=== PATIENT | male | born 1985 | race Caucasian/White ===

== ENCOUNTER 2021-04-15 13:26 | Inpatient (IN) | payer OTHER, SELFPAY ==
[~2021-04-15] VITALS: Ht 175.3 cm; Wt 84.8 kg
[2021-04-15 13:32] VITALS: BP_SYST 134
[2021-04-15] MEDS ORDERED: NACL 0.9% 1,000 ML IV ONE (13:45)
[2021-04-15] MEDS ORDERED: LORazepam 2 MG/ML VIAL IVP ONE ×2 (13:45→18:00)
[2021-04-15 14:25] LABS: CALCIUM 8.3 mg/dL (8.4-11.0); CREATININE 0.88 mg/dL (0.55-1.30); POTASSIUM 3.3 mmol/L (3.5-5.1)
[2021-04-15 14:30] LABS: BASOPHILS # (AUTO) 0.2 K/uL (0.0-0.2); BASOPHILS % (AUTO) 3.2 % (0.0-2.0); EOSINOPHILS # (AUTO) 0.1 K/uL (0.0-0.4); EOSINOPHILS % (AUTO) 1.5 % (0.0-4.0); HEMOGLOBIN 14.1 g/dL (14.0-18.0); LYMPHOCYTES # (AUTO) 0.6 K/uL (1.0-5.5); LYMPHOCYTES % (AUTO) 12.7 % (20.5-51.5); MEAN CORPUSCULAR HEMOGLOBIN 33 pg (27-31); MEAN CORPUSCULAR HGB CONC 34 % (32-36); MEAN CORPUSCULAR VOLUME 97 fL (79.0-98.0); MONOCYTES # (AUTO) 0.3 K/uL (0.0-1.0); MONOCYTES % (AUTO) 5.1 % (1.7-9.3); NEUTROPHILS # (AUTO) 3.9 K/uL (1.8-7.7); NEUTROPHILS % (AUTO) 77.5 % (40.0-70.0); PLATELET COUNT (AUTO) 188 K/uL (130-430); RED BLOOD CELL COUNT(AUTO) 4.25 MIL/uL (4.2-6.2); RED CELL DISTRIBUTION WIDTH 14.4 % (9.0-15.0)
[2021-04-15 14:31] LABS: TOTAL BILIRUBIN 1.7 mg/dL (0.0-1.0)
[2021-04-15] MEDS ORDERED: KETOROLAC TROMETHAMINE 30 MG VIAL IVP ONE (18:15)
[2021-04-15] MEDS ORDERED: MAGNESIUM SULFATE 1 GM/2 ML VIAL ONE (18:48)
[2021-04-15] MEDS ORDERED: MVI 10 ML VIAL IV ONE (18:48)
[2021-04-15] MEDS ORDERED: THIAMINE HCL 100 MG/ML VIAL ONE (18:48)
[2021-04-15] MEDS ORDERED: FOLIC ACID 5 MG/ML VIAL IV ONE (18:48)
[2021-04-15] MEDS: FOLIC ACID 1 MG, THIAMINE HCL 100 MG, MAGNESIUM SULFATE 1 GM, MVI 10 ML in NACL 0.9% 1,... IV SCH (19:18)
[2021-04-15] MEDS ORDERED: POTASSIUM CHLORIDE 20 MEQ TAB.PRT.SR PO ONE (21:30)
[2021-04-15] MEDS ORDERED: chlordiazePOXIDE HCL 25 MG CAPSULE ONE (21:42)
[2021-04-15] MEDS: chlordiazePOXIDE HCL 10 MG CAPSULE PO SCH (21:53)
[2021-04-15 22:48] LABS: BARBITURATE, URINE NEGATIVE (NEG <=200); BENZODIAZEPINE, URINE POSITIVE (NEG <=150); CANNABINOID, URINE POSITIVE (NEG <=50); COCAINE, URINE NEGATIVE (NEG <=150); METHAMPHETAMINES SCREEN,URINE NEGATIVE (NEG <=500); OPIATE, URINE NEGATIVE (NEG <=100); PHENCYCLIDINE SCREEN,URINE NEGATIVE (NEG <=25); UR TRICYCLIC ANTIDEPRESSANTS NEGATIVE (NEG <=300); URINE AMPHETAMINE NEGATIVE (NEG <=500); URINE METHADONE NEGATIVE (NEG <=200); URINE OXYCODONE SCREEN NEGATIVE (NEG <=100); URINE PROPOXYPHENE SCREEN NEGATIVE (NEG <=300)
[2021-04-16] MEDS ORDERED: THIAMINE HCL 100 MG/ML VIAL ONE (02:41)
[2021-04-16] MEDS ORDERED: MAGNESIUM SULFATE 1 GM/2 ML VIAL ONE (02:41)
[2021-04-16] MEDS ORDERED: MVI 10 ML VIAL IV ONE (02:41)
[2021-04-16] MEDS: LORazepam 2 MG/ML VIAL IVP PRN ×4 (02:45→16:38)
[2021-04-16] MEDS: FOLIC ACID 1 MG, THIAMINE HCL 100 MG, MAGNESIUM SULFATE 1 GM, MVI 10 ML in NACL 0.9% 1,... IV SCH (02:53)
[2021-04-16 05:28] LABS: ALBUMIN 3.7 g/dL (3.4-4.8); CREATININE 0.79 mg/dL (0.55-1.30); TOTAL BILIRUBIN 2.1 mg/dL (0.0-1.0)
[2021-04-16 05:48] LABS: CALCIUM 8.6 mg/dL (8.4-11.0)
[2021-04-16 05:50] LABS: BASOPHILS % (AUTO) 0.8 % (0.0-2.0); EOSINOPHILS % (AUTO) 0.8 % (0.0-4.0); HEMATOCRIT 36.3 % (36-54); HEMOGLOBIN 12.3 g/dL (14.0-18.0); LYMPHOCYTES % (AUTO) 25.6 % (20.5-51.5); MEAN CORPUSCULAR HEMOGLOBIN 33 pg (27-31); MEAN CORPUSCULAR HGB CONC 34 % (32-36); MEAN CORPUSCULAR VOLUME 97 fL (79.0-98.0); MONOCYTES # (AUTO) 0.3 K/uL (0.0-1.0); MONOCYTES % (AUTO) 8.5 % (1.7-9.3); NEUTROPHILS # (AUTO) 2.4 K/uL (1.8-7.7); NEUTROPHILS % (AUTO) 64.3 % (40.0-70.0); PLATELET COUNT (AUTO) 145 K/uL (130-430); RED BLOOD CELL COUNT(AUTO) 3.74 MIL/uL (4.2-6.2); RED CELL DISTRIBUTION WIDTH 14.3 % (9.0-15.0); WHITE BLOOD COUNT (AUTO) 3.7 K/uL (4.8-10.8)
[2021-04-16] MEDS ORDERED: FOLIC ACID 1 MG TABLET PO SCH (09:00)
[2021-04-16] MEDS: chlordiazePOXIDE HCL 10 MG CAPSULE PO SCH ×2 (09:00→13:00)
[2021-04-16] MEDS ORDERED: MULTIVITAMINS TAB 1 TABLET PO SCH (09:00)
[2021-04-16] MEDS ORDERED: THIAMINE HCL 100 MG TABLET PO SCH (09:00)
[2021-04-16] MEDS ORDERED: chlordiazePOXIDE HCL 25 MG CAPSULE ONE ×3 (12:18→17:48)
[2021-04-16 15:00] VITALS: BP_SYST 121
== END 2021-04-16 17:56 | disposition left against medical advice (07) | DRG 605 ==
LOC: SED 13:26 → STU 18:40
PROVIDERS: ADMIT Internal Medicine; ATTEND Internal Medicine
DX: S60.221A Contusion of right hand, initial encounter (principal); F10.239 Alcohol dependence with withdrawal, unspecified; Z53.29 Procedure and treatment not carried out because of patient's decision for other reasons; E87.6 Hypokalemia; Y90.6 Blood alcohol level of 120-199 mg/100 ml; F41.9 Anxiety disorder, unspecified; K70.10 Alcoholic hepatitis without ascites; X58.XXXA Exposure to other specified factors, initial encounter; Z20.822 Contact with and (suspected) exposure to COVID-19; Y93.89 Activity, other specified; Y92.89 Other specified places as the place of occurrence of the external cause; Y99.8 Other external cause status
CPT/HCPCS: 36415; 80053; 80307; 85025; 93005; 96361; 96374; 96375; 96376; 99291; G0378; G0482; J1885; J2060; J3411; J3475; J3490

== ENCOUNTER 2021-08-14 09:00 | Inpatient (IN) | payer OTHER ==
[~2021-08-14] VITALS: Ht 177.8 cm; Wt 81.6 kg
[2021-08-14 09:05] VITALS: BP_SYST 121
[2021-08-14] MEDS ORDERED: NACL 0.9% 2,000 ML IV ONE (09:30)
[2021-08-14] MEDS ORDERED: ONDANSETRON HCL 4 MG/2 ML VIAL IVP ONE (09:30)
[2021-08-14] MEDS ORDERED: LORazepam 2 MG/ML VIAL IVP ONE (09:30)
[2021-08-14 10:27] LABS: BASOPHILS % (AUTO) 0.3 % (0.0-2.0); HEMATOCRIT 43.1 % (36-54); HEMOGLOBIN 14.6 g/dL (14.0-18.0); LYMPHOCYTES # (AUTO) 1.6 K/uL (1.0-5.5); LYMPHOCYTES % (AUTO) 14.1 % (20.5-51.5); MEAN CORPUSCULAR HEMOGLOBIN 31 pg (27-31); MEAN CORPUSCULAR HGB CONC 34 % (32-36); MEAN CORPUSCULAR VOLUME 92 fL (79.0-98.0); MONOCYTES # (AUTO) 0.7 K/uL (0.0-1.0); MONOCYTES % (AUTO) 6.1 % (1.7-9.3); NEUTROPHILS # (AUTO) 9.1 K/uL (1.8-7.7); NEUTROPHILS % (AUTO) 79.5 % (40.0-70.0); PLATELET COUNT (AUTO) 308 K/uL (130-430); RED BLOOD CELL COUNT(AUTO) 4.67 MIL/uL (4.2-6.2); RED CELL DISTRIBUTION WIDTH 13.1 % (9.0-15.0); WHITE BLOOD COUNT (AUTO) 11.4 K/uL (4.8-10.8)
[2021-08-14 10:35] LABS: ANION GAP 26 (5-15); CALCIUM 8.9 mg/dL (8.4-11.0); CHLORIDE 96 mmol/L (98-107); CREATININE 1.12 mg/dL (0.55-1.30); GLUCOSE 127 mg/dL (70-99); POTASSIUM 3.5 mmol/L (3.5-5.1); SODIUM SERUM 137 mmol/L (136-145); UREA NITROGEN, BLOOD 9 mg/dL (8-21)
[2021-08-14 10:41] LABS: ALANINE AMINOTRANSFERASE 58 U/L (12-78); ALBUMIN 4.6 g/dL (3.4-4.8); AMYLASE 118 U/L (0-100); ASPARTATE AMINOTRANSFERASE 61 U/L (10-37); LIPASE 105 U/L (73-393); TOTAL BILIRUBIN 1.6 mg/dL (0.0-1.0)
[2021-08-14 10:51] LABS: GFR AFRICAN AMERICAN 97 mL/min (>90)
[2021-08-14 11:18] LABS: ACETONE, SERUM TRACE (NEGATIVE)
[2021-08-14 11:20] LABS: ALCOHOL, BLOOD 40 mg/dL (<10)
[2021-08-14] MEDS ORDERED: ESCI10TA PO (11:56)
[2021-08-14] MEDS ORDERED: FOLIC ACID 1 MG, THIAMINE HCL 100 MG, MAGNESIUM SULFATE 1 GM, MVI 10 ML in NACL 0.9% 1,... IV SCH (12:45)
[2021-08-14] MEDS ORDERED: MORPHINE 2 MG/ML INJ. SYRINGE IVP PRN ×2 (12:45)
[2021-08-14] MEDS ORDERED: MUPIROCIN 2% TOPICAL OINTMENT 22 GM NS PRN (12:45)
[2021-08-14] MEDS ORDERED: POTASSIUM CHLORIDE 20 MEQ TAB.PRT.SR PO PRN (12:45)
[2021-08-14] MEDS ORDERED: ACETAMINOPHEN 325 MG TABLET PO PRN (12:45)
[2021-08-14] MEDS ORDERED: MAGNESIUM SULFATE 50 ML IV PRN (12:45)
[2021-08-14] MEDS ORDERED: ZOLPIDEM TARTRATE 5 MG TABLET PO PRN (12:45)
[2021-08-14] MEDS ORDERED: DOCUSATE SODIUM 100 MG CAPSULE PO PRN (12:45)
[2021-08-14] MEDS ORDERED: NALOXONE HCL 0.4 MG/ML AMP (NARCAN) IVP PRN ×2 (12:45)
[2021-08-14] MEDS ORDERED: THIAMINE HCL 100 MG, MAGNESIUM SULFATE 1 GM in NS 100 ML IV SCH (13:15)
[2021-08-14] MEDS ORDERED: FOLIC ACID 1 MG, MVI 10 ML in NACL 0.9% 1,000 ML IV SCH (13:15)
[2021-08-14] MEDS: NACL 0.9% 1,000 ML IV SCH (13:40)
[2021-08-14] MEDS: ONDANSETRON HCL 4 MG/2 ML VIAL IVP PRN ×2 (14:43→20:33)
[2021-08-14] MEDS: LORazepam 2 MG/ML VIAL IVP PRN ×2 (14:44→20:27)
[2021-08-14] MEDS: chlordiazePOXIDE HCL 25 MG CAPSULE PO SCH ×2 (14:57→20:25)
[2021-08-14 17:07] VITALS: BP_SYST 119
[2021-08-14 20:00] VITALS: BP_SYST 132
[2021-08-15 00:14] VITALS: BP_SYST 127
[2021-08-15] MEDS: NACL 0.9% 1,000 ML IV SCH ×4 (02:48→23:24)
[2021-08-15 05:55] LABS: BASOPHILS % (AUTO) 0.7 % (0.0-2.0); EOSINOPHILS # (AUTO) 0.1 K/uL (0.0-0.4); EOSINOPHILS % (AUTO) 2.3 % (0.0-4.0); HEMATOCRIT 37.8 % (36-54); HEMOGLOBIN 12.8 g/dL (14.0-18.0); LYMPHOCYTES # (AUTO) 1.4 K/uL (1.0-5.5); MEAN CORPUSCULAR HEMOGLOBIN 32 pg (27-31); MEAN CORPUSCULAR HGB CONC 34 % (32-36); MEAN CORPUSCULAR VOLUME 93 fL (79.0-98.0); MONOCYTES # (AUTO) 0.3 K/uL (0.0-1.0); MONOCYTES % (AUTO) 7.3 % (1.7-9.3); NEUTROPHILS # (AUTO) 2.8 K/uL (1.8-7.7); NEUTROPHILS % (AUTO) 59.7 % (40.0-70.0); PLATELET COUNT (AUTO) 187 K/uL (130-430); RED BLOOD CELL COUNT(AUTO) 4.06 MIL/uL (4.2-6.2); RED CELL DISTRIBUTION WIDTH 13.5 % (9.0-15.0); WHITE BLOOD COUNT (AUTO) 4.6 K/uL (4.8-10.8)
[2021-08-15 06:22] LABS: CALCIUM 8.1 mg/dL (8.4-11.0); CREATININE 0.67 mg/dL (0.55-1.30); POTASSIUM 3.3 mmol/L (3.5-5.1)
[2021-08-15 08:29] VITALS: BP_SYST 150
[2021-08-15] MEDS ORDERED: ESCITALOPRAM OXALATE 10 MG TABLET PO SCH (09:00)
[2021-08-15] MEDS: ONDANSETRON HCL 4 MG/2 ML VIAL IVP PRN ×2 (09:28→23:09)
[2021-08-15] MEDS: chlordiazePOXIDE HCL 25 MG CAPSULE PO SCH ×3 (09:28→21:43)
[2021-08-15] MEDS: THIAMINE HCL 100 MG TABLET PO SCH (09:28)
[2021-08-15] MEDS: CITALOPRAM HYDROBROMIDE 20 MG TABLET PO SCH (09:28)
[2021-08-15] MEDS: LORazepam 2 MG/ML VIAL IVP PRN ×3 (09:30→23:10)
[2021-08-15 11:26] VITALS: BP_SYST 127
[2021-08-15 17:15] VITALS: BP_SYST 124
[2021-08-15 20:30] VITALS: BP_SYST 138
[2021-08-16 00:23] VITALS: BP_SYST 120
[2021-08-16 05:57] LABS: BASOPHILS % (AUTO) 0.7 % (0.0-2.0); EOSINOPHILS # (AUTO) 0.3 K/uL (0.0-0.4); EOSINOPHILS % (AUTO) 6.9 % (0.0-4.0); HEMATOCRIT 38.2 % (36-54); HEMOGLOBIN 12.9 g/dL (14.0-18.0); LYMPHOCYTES # (AUTO) 1.6 K/uL (1.0-5.5); LYMPHOCYTES % (AUTO) 32.3 % (20.5-51.5); MEAN CORPUSCULAR HEMOGLOBIN 32 pg (27-31); MEAN CORPUSCULAR HGB CONC 34 % (32-36); MEAN CORPUSCULAR VOLUME 93 fL (79.0-98.0); MONOCYTES # (AUTO) 0.3 K/uL (0.0-1.0); MONOCYTES % (AUTO) 6.7 % (1.7-9.3); NEUTROPHILS # (AUTO) 2.7 K/uL (1.8-7.7); NEUTROPHILS % (AUTO) 53.4 % (40.0-70.0); PLATELET COUNT (AUTO) 188 K/uL (130-430); RED CELL DISTRIBUTION WIDTH 13.2 % (9.0-15.0)
[2021-08-16 06:09] LABS: CALCIUM 7.5 mg/dL (8.4-11.0); CREATININE 0.78 mg/dL (0.55-1.30); POTASSIUM 3.3 mmol/L (3.5-5.1)
[2021-08-16 08:22] VITALS: BP_SYST 128
[2021-08-16] MEDS: THIAMINE HCL 100 MG TABLET PO SCH (08:36)
[2021-08-16] MEDS: CITALOPRAM HYDROBROMIDE 20 MG TABLET PO SCH (08:36)
[2021-08-16] MEDS: chlordiazePOXIDE HCL 25 MG CAPSULE PO SCH (08:36)
[2021-08-16] MEDS ORDERED: NEPHROVITE, (FOLIC ACID/VITAMIN B COMP W-C 1 TAB) PO SCH (09:00)
[2021-08-16] MEDS ORDERED: FOLI-43 PO (09:06)
[2021-08-16] MEDS ORDERED: THIA100T70 PO (09:06)
[2021-08-16 10:23] VITALS: BP_SYST 124
== END 2021-08-16 10:50 | disposition home or self-care (01) | DRG 641 ==
LOC: SED 09:00 → SMU 12:29 → STU 12:41
PROVIDERS: ADMIT General Practice; ATTEND General Practice
DX: E87.2 Acidosis (principal); F10.231 Alcohol dependence with withdrawal delirium; R65.10 Systemic inflammatory response syndrome (SIRS) of non-infectious origin without acute organ dysfunction; D72.829 Elevated white blood cell count, unspecified; F32.A Depression, unspecified; F41.9 Anxiety disorder, unspecified; Z20.822 Contact with and (suspected) exposure to COVID-19; Z71.41 Alcohol abuse counseling and surveillance of alcoholic; Z79.899 Other long term (current) drug therapy
CPT/HCPCS: 36415; 70450-TC; 71045; 76376; 80048; 80053; 82009; 82150; 83036; 83605; 83690; 83735; 85025; 96361; 96374; 96375; 99285; G0378; G0482; J2060; J2405; J3411; J3475; J3490; J7030

== ENCOUNTER 2021-10-31 14:08 | Emergency (ER) | payer OTHER ==
[~2021-10-31] VITALS: Ht 167.6 cm; Wt 113.4 kg
[~2021-10-31 14:08] MED LIST: ESCI10TA PO; FOLI-43 PO; THIA100T70 PO
[2021-10-31 14:29] VITALS: BP_SYST 150
[2021-10-31] MEDS ORDERED: MIDAZOLAM HCL 5 MG/5 ML VIAL IM ONE (14:30)
[2021-10-31] MEDS ORDERED: DIPHENHYDRAMINE INJ 50 MG/ML VIAL IM ONE (14:30)
[2021-10-31] MEDS ORDERED: HALOPERIDOL LACTATE 5 MG/ML VIAL IM ONE (14:30)
--- NOTE | 2021-10-31 15:13 | NUR ---
Patient to ER bed H1 to gown for evaluation. Side rails up.
--- NOTE | 2021-10-31 15:30 | NUR ---
Pt BIB BLS from home, pt called 911 Pt CC bone pain R/t alcohol withdrawals as stated by patient. Pt is aaox4 with fatigue and diaphretic. Pt c/o headache N/V and anxious feeling. Pt is restless in gurney turning for comfort discovery. Pt skin intact, NAD, breathing is unlabored and even. PMHx PTSD depression
--- NOTE | 2021-10-31 15:45 | NUR ---
Pt states last alcohol drink was at 1000 this morning. Pt continues to experience alcohol withdrawl sweaty and nauseus.
--- NOTE | 2021-10-31 16:37 | NUR ---
Pt is asleep in [facility] .
--- NOTE | 2021-10-31 17:24 | NUR ---
Pt aaox4 sitting up in bed repositioned and resting in bed.
[2021-10-31] MEDS ORDERED: MIDAZOLAM HCL 5 MG/5 ML VIAL IVP ONE (18:30)
[2021-10-31] MEDS ORDERED: NACL 0.9% 1,000 ML IV ONE (18:30)
[2021-10-31 19:08] LABS: BASOPHILS % (AUTO) 0.6 % (0.0-2.0); EOSINOPHILS % (AUTO) 0.1 % (0.0-4.0); HEMATOCRIT 39.7 % (36-54); HEMOGLOBIN 13.5 g/dL (14.0-18.0); LYMPHOCYTES # (AUTO) 2.5 K/uL (1.0-5.5); LYMPHOCYTES % (AUTO) 49.3 % (20.5-51.5); MEAN CORPUSCULAR HEMOGLOBIN 29 pg (27-31); MEAN CORPUSCULAR HGB CONC 34 % (32-36); MEAN CORPUSCULAR VOLUME 86 fL (79.0-98.0); MONOCYTES # (AUTO) 0.4 K/uL (0.0-1.0); NEUTROPHILS # (AUTO) 2.2 K/uL (1.8-7.7); PLATELET COUNT (AUTO) 250 K/uL (130-430); RED BLOOD CELL COUNT(AUTO) 4.62 MIL/uL (4.2-6.2); RED CELL DISTRIBUTION WIDTH 14.2 % (9.0-15.0); WHITE BLOOD COUNT (AUTO) 5.2 K/uL (4.8-10.8)
[2021-10-31 19:26] VITALS: BP_SYST 147
[2021-10-31 19:29] LABS: ALBUMIN 3.8 g/dL (3.4-4.8); CALCIUM 8.4 mg/dL (8.4-11.0); CREATININE 0.78 mg/dL (0.55-1.30); TOTAL BILIRUBIN 0.6 mg/dL (0.0-1.0)
[2021-10-31 19:40] LABS: POTASSIUM 3.5 mmol/L (3.5-5.1)
--- NOTE | 2021-10-31 19:49 | NUR ---
Pt is asleep with NAD, running fluids.
--- NOTE | 2021-10-31 20:42 | NUR ---
Pt aaox4 requesting water and transportation. 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
--- NOTE | 2021-10-31 21:18 | NUR ---
DC PTAINET HOME AAOX4, NO SOB NOTED AND NOT ON ANY DISTRESS. DC INSTRUCTION AND PRESCRIPTION WERE GIVEN TO PATIENT, ALSO INSTRUCTED TO F/U WITH HIS PCP. HE VERBALIZED UNDERSTANDING.
== END 2021-10-31 21:16 | disposition home or self-care (01) ==
LOC: SED 14:08
DX: F10.239 Alcohol dependence with withdrawal, unspecified (principal); Y90.6 Blood alcohol level of 120-199 mg/100 ml; Z79.899 Other long term (current) drug therapy
CPT/HCPCS: 99284; 96374; 96361; 80053; 85025; 36415; 96372; G0482; J1200; J1630; J2250; J7030